=== PATIENT | male | born 1955 | race African-American/Black ===

== ENCOUNTER 2018-09-21 15:01 | Inpatient (IN) | payer MEDICAID ==
[~2018-09-21] VITALS: Ht 172.7 cm; Wt 60.8 kg
[2018-09-21] MEDS ORDERED: [UNRECOGNIZED DRUG - OTHER] PO (15:39)
[2018-09-21 18:34] LABS: BASOPHILS % (AUTO) 0.5 % (0.0-2.0); EOSINOPHILS % (AUTO) 2.1 % (1.0-6.0); HEMATOCRIT 39.3 % (41-53); HEMOGLOBIN 12.4 g/dL (13.5-17.5); LYMPHOCYTES # (AUTO) 0.6 K/uL (1.0-4.8); MEAN CORPUSCULAR HEMOGLOBIN 23.5 pg (26.0-34.0); MEAN CORPUSCULAR HGB CONC 31.5 G/dL (31.0-37.0); MEAN CORPUSCULAR VOLUME 75 fL (80-100); MONOCYTES # (AUTO) 0.5 K/uL (0.1-1.0); MONOCYTES % (AUTO) 6.4 % (2.0-9.0); NEUTROPHILS # (AUTO) 6.7 K/uL (1.8-7.7); PLATELET COUNT (AUTO) 194 K/uL (150-450); RED BLOOD CELL COUNT(AUTO) 5.28 MIL/uL (4.50-5.90); RED CELL DISTRIBUTION WIDTH 15.6 % (11.5-14.5)
[2018-09-21 18:39] LABS: ANION GAP 8 mmol/L (8-16); CALCIUM, TOTAL 9.3 mg/dL (8.8-10.5); CARBON DIOXIDE 31 mmol/L (22-29); CHLORIDE 105 mmol/L (98-107); GLOMERULAR FILTR. RATE CALC > 60 mL/min (>60); GLUCOSE,RANDOM 122 mg/dL (70-110); POTASSIUM 3.6 mmol/L (3.5-5.1); SODIUM SERUM 144 mmol/L (136-145); UREA NITROGEN, BLOOD 22 mg/dL (7-18)
[2018-09-21 18:44] LABS: ALANINE AMINOTRANSFERASE 27 U/L (12-78); ALBUMIN 3.7 g/dL (3.4-5.0); ALKALINE PHOSPHATASE 53 U/L (46-116); ASPARTATE AMINOTRANSFERASE 69 U/L (15-37); BILIRUBIN,TOTAL 0.4 mg/dL (0.1-1.0); TOTAL PROTEIN, SERUM 7.8 g/dL (6.4-8.2)
[2018-09-21] MEDS ORDERED: MORPHINE SULFATE 4 MG/ML SYRINGE IVP ONE (19:00)
[2018-09-21 19:14] LABS: PLATELET MORPHOLOGY COMMENT NORMAL
[2018-09-21] MEDS ORDERED: LORazepam 2 MG/ML VIAL IVP ONE (19:15)
[2018-09-21] MEDS ORDERED: ALBUTEROL SULFATE 2.5 MG/0.5 ML NEB SOLUTION NEB PRN (20:45)
[2018-09-21] MEDS ORDERED: BISACODYL 10 MG RECTAL RECTAL SUPPOSITORY PR PRN (20:45)
[2018-09-21] MEDS ORDERED: MAGNESIUM HYDROXIDE SUSPENSION 30 ML UDCUP PO PRN (20:45)
[2018-09-21] MEDS ORDERED: 0.9% SODIUM CHLORIDE 10 ML SYRINGE IVP PRN (20:45)
[2018-09-21] MEDS ORDERED: ONDANSETRON HCL 4 MG/2 ML VIAL IVP PRN (20:45)
[2018-09-21] MEDS ORDERED: ACETAMINOPHEN 325 MG TABLET PO PRN (20:45)
[2018-09-21 20:52] VITALS: BP 178/98
[2018-09-21 21:14] LABS: PROTHROMBIN TIME 10.4 SEC (9.4-11.6)
[2018-09-21] MEDS: DOCUSATE SODIUM 100 MG CAPSULE PO SCH (21:27)
[2018-09-21] MEDS: DEXTROSE 5%-0.45% SODIUM CHL 1,000 ML IV SCH (21:27)
[2018-09-21 23:12] VITALS: BP 160/94
[2018-09-21] MEDS ORDERED: PNEUMOCOCCAL VACCINE POLYVALENT 0.5 ML VIAL [PPSV23] IM ONE (23:15)
[2018-09-22] MEDS: MORPHINE SULFATE 4 MG/ML SYRINGE IVP PRN ×3 (00:10→22:11)
[2018-09-22 04:27] VITALS: BP 166/87
[2018-09-22 05:51] VITALS: BP 140/41
[2018-09-22 05:51] LABS: BASOPHILS % (AUTO) 0.4 % (0.0-2.0); EOSINOPHILS % (AUTO) 5.3 % (1.0-6.0); HEMATOCRIT 37.2 % (41-53); HEMOGLOBIN 11.8 g/dL (13.5-17.5); LYMPHOCYTES # (AUTO) 1.1 K/uL (1.0-4.8); LYMPHOCYTES % (AUTO) 17.1 % (22.0-44.0); MEAN CORPUSCULAR HEMOGLOBIN 23.6 pg (26.0-34.0); MEAN CORPUSCULAR HGB CONC 31.6 G/dL (31.0-37.0); MEAN CORPUSCULAR VOLUME 75 fL (80-100); MONOCYTES # (AUTO) 0.7 K/uL (0.1-1.0); MONOCYTES % (AUTO) 10.6 % (2.0-9.0); NEUTROPHILS # (AUTO) 4.3 K/uL (1.8-7.7); NEUTROPHILS % (AUTO) 66.6 % (40.0-70.0); PLATELET COUNT (AUTO) 170 K/uL (150-450); RED BLOOD CELL COUNT(AUTO) 4.98 MIL/uL (4.50-5.90); RED CELL DISTRIBUTION WIDTH 15.4 % (11.5-14.5)
[2018-09-22] MEDS ORDERED: LIDOCAINE/PF 2% 5 ML VIAL INJ ONE (06:00)
[2018-09-22] MEDS ORDERED: PROPOFOL 1% 20 ML VIAL IVP ONE (06:00)
[2018-09-22 06:10] LABS: ALANINE AMINOTRANSFERASE 20 U/L (12-78); ALBUMIN 3.2 g/dL (3.4-5.0); ALKALINE PHOSPHATASE 50 U/L (46-116); ANION GAP 12 mmol/L (8-16); ASPARTATE AMINOTRANSFERASE 45 U/L (15-37); BILIRUBIN,TOTAL 0.6 mg/dL (0.1-1.0); CALCIUM, TOTAL 8.8 mg/dL (8.8-10.5); CARBON DIOXIDE 27 mmol/L (22-29); CHLORIDE 105 mmol/L (98-107); CREATININE 0.84 mg/dL (0.60-1.30); GLOMERULAR FILTR. RATE CALC > 60 mL/min (>60); GLUCOSE,RANDOM 116 mg/dL (70-110); POTASSIUM 3.2 mmol/L (3.5-5.1); SODIUM SERUM 144 mmol/L (136-145); TOTAL PROTEIN, SERUM 6.9 g/dL (6.4-8.2); UREA NITROGEN, BLOOD 17 mg/dL (7-18)
[2018-09-22] MEDS ORDERED: POTASSIUM CHL 10 MEQ/WATER 50 ML IV PRN (06:45)
[2018-09-22] MEDS ORDERED: POTASSIUM CHLORIDE 20 MEQ ER TABLET PO PRN (06:45)
[2018-09-22] MEDS: DOCUSATE SODIUM 100 MG CAPSULE PO SCH ×2 (08:41→21:58)
[2018-09-22] MEDS: PANTOPRAZOLE SODIUM 40 MG/VIAL IVP SCH (08:57)
[2018-09-22 11:30] VITALS: BP 145/82
[2018-09-22] MEDS ORDERED: MIDAZOLAM HCL 2 MG/2 ML VIAL IVP ONE (12:00)
[2018-09-22] MEDS ORDERED: FentaNYL CITRATE-PF 100 MCG/2 ML VIAL IVP ONE (12:00)
[2018-09-22] MEDS ORDERED: KETAMINE HCL 50 MG/ML 10 ML VIAL IVP ONE (12:00)
[2018-09-22] MEDS ORDERED: ROCURONIUM BROMIDE 10 MG/ML 5 ML VIAL ONE (15:04)
[2018-09-22 15:15] VITALS: BP 173/81
[2018-09-22] MEDS ORDERED: BUPIVACAINE LIPOSOME/PF 1.3%-13.3MG/ML SUSPENSION 20 ML VIAL INJ ONE (15:30)
[2018-09-22] MEDS ORDERED: RINGERS SOLUTION,LACTATED 1,000 ML IV ONE ×2 (15:34→15:45)
[2018-09-22] MEDS ORDERED: VANCOMYCIN HCL 1 GM/VIAL ONE (16:40)
[2018-09-22] MEDS ORDERED: BUPIVACAINE HCL/PF 0.25% 30 ML VIAL ONE (16:40)
[2018-09-22] MEDS ORDERED: SODIUM CL IRRIG SOLN BAG 3,000 ML IRRIG ONE (16:40)
[2018-09-22] MEDS ORDERED: FentaNYL CITRATE-PF 100 MCG/2 ML VIAL IVP PRN (17:45)
[2018-09-22] MEDS ORDERED: MEPERIDINE-PF 25 MG/ML VIAL IVP PRN (17:45)
[2018-09-22] MEDS ORDERED: HYDROmorphone 2 MG/ML SYRINGE IVP PRN (17:45)
[2018-09-22] MEDS ORDERED: MICROFIBRILLAR COLLAGEN 1 GM PACKAGE TP ONE (17:54)
[2018-09-22] MEDS ORDERED: BACITRACIN 28.4 GM OINTMENT TP ONE (17:55)
[2018-09-22 19:46] VITALS: BP 141/99
[2018-09-22] MEDS: ATORVASTATIN CALCIUM 10 MG TABLET PO SCH (21:58)
[2018-09-22 23:51] VITALS: BP 134/72
[2018-09-23] MEDS: DEXTROSE 5%-0.45% SODIUM CHL 1,000 ML IV SCH ×3 (00:57→22:45)
[2018-09-23] MEDS: CeFAZolin 2 GM/DEXTROSE 50 ML IV SCH ×2 (01:00→08:31)
[2018-09-23] MEDS ORDERED: LORazepam 2 MG/ML VIAL IM ONE (02:45)
[2018-09-23] MEDS ORDERED: LORazepam 2 MG/ML VIAL IVP ONE (03:30)
[2018-09-23 03:40] VITALS: BP 162/91
[2018-09-23] MEDS: ACETAMINOPHEN 325 MG TABLET PO PRN (03:45)
[2018-09-23 05:28] VITALS: BP 141/77
[2018-09-23 07:31] LABS: BASOPHILS % (AUTO) 0.5 % (0.0-2.0); EOSINOPHILS % (AUTO) 2.9 % (1.0-6.0); HEMOGLOBIN 11.3 g/dL (13.5-17.5); LYMPHOCYTES # (AUTO) 0.7 K/uL (1.0-4.8); MEAN CORPUSCULAR HEMOGLOBIN 23.8 pg (26.0-34.0); MEAN CORPUSCULAR HGB CONC 32.2 G/dL (31.0-37.0); MEAN CORPUSCULAR VOLUME 74 fL (80-100); MONOCYTES # (AUTO) 0.6 K/uL (0.1-1.0); MONOCYTES % (AUTO) 10.9 % (2.0-9.0); NEUTROPHILS # (AUTO) 4.2 K/uL (1.8-7.7); NEUTROPHILS % (AUTO) 73.7 % (40.0-70.0); PLATELET COUNT (AUTO) 171 K/uL (150-450); RED BLOOD CELL COUNT(AUTO) 4.73 MIL/uL (4.50-5.90); RED CELL DISTRIBUTION WIDTH 15.4 % (11.5-14.5)
[2018-09-23 07:48] VITALS: BP 166/56
[2018-09-23] MEDS: OXYGEN THERAPY IH SCH (08:00)
[2018-09-23 08:12] LABS: ANION GAP 7 mmol/L (8-16); CALCIUM, TOTAL 8.7 mg/dL (8.8-10.5); CARBON DIOXIDE 31 mmol/L (22-29); CHLORIDE 104 mmol/L (98-107); CREATININE 0.91 mg/dL (0.60-1.30); GLOMERULAR FILTR. RATE CALC > 60 mL/min (>60); GLUCOSE,RANDOM 116 mg/dL (70-110); POTASSIUM 3.7 mmol/L (3.5-5.1); SODIUM SERUM 142 mmol/L (136-145); UREA NITROGEN, BLOOD 15 mg/dL (7-18)
[2018-09-23] MEDS: PANTOPRAZOLE SODIUM 40 MG/VIAL IVP SCH (08:30)
[2018-09-23] MEDS: DOCUSATE SODIUM 100 MG CAPSULE PO SCH ×2 (08:31→21:54)
[2018-09-23] MEDS: ENOXAPARIN SODIUM 30 MG/0.3 ML PF SYRINGE SQ SCH ×2 (08:31→21:54)
[2018-09-23 08:41] LABS: CREATINE KINASE, TOTAL ONLY 1616 U/L (39-308)
[2018-09-23] MEDS ORDERED: ASPIRIN 81 MG CHEWABLE TABLET PO SCH (09:00)
[2018-09-23 12:33] VITALS: BP 149/88
[2018-09-23 15:49] VITALS: BP 135/70
[2018-09-23 19:37] VITALS: BP 148/85
[2018-09-23] MEDS: ATORVASTATIN CALCIUM 10 MG TABLET PO SCH (21:54)
[2018-09-24] VITALS (7 sets, daily range): BP systolic 128–159; BP diastolic 60–94
[2018-09-24] MEDS: OXYGEN THERAPY IH SCH (08:00)
[2018-09-24] MEDS: PANTOPRAZOLE SODIUM 40 MG/VIAL IVP SCH (08:20)
[2018-09-24] MEDS: DOCUSATE SODIUM 100 MG CAPSULE PO SCH ×2 (08:20→20:17)
[2018-09-24] MEDS ORDERED: SODIUM CHLORIDE 0.9% 1,000 ML IV ONE (09:15)
[2018-09-24] MEDS: DEXTROSE 5%-0.45% SODIUM CHL 1,000 ML IV SCH ×2 (15:25→19:46)
[2018-09-24] MEDS: ATORVASTATIN CALCIUM 10 MG TABLET PO SCH (20:17)
[2018-09-25 04:39] VITALS: BP 154/89
[2018-09-25] MEDS: ACETAMINOPHEN 325 MG TABLET PO PRN ×2 (04:54→20:24)
[2018-09-25] MEDS ORDERED: RINGERS SOLUTION,LACTATED 1,000 ML IV ONE (05:30)
[2018-09-25 07:20] VITALS: BP 150/84
[2018-09-25] MEDS: OXYGEN THERAPY IH SCH (08:00)
[2018-09-25] MEDS: PANTOPRAZOLE SODIUM 40 MG/VIAL IVP SCH (09:04)
[2018-09-25] MEDS: DOCUSATE SODIUM 100 MG CAPSULE PO SCH ×2 (09:05→20:24)
[2018-09-25 09:40] LABS: BASOPHILS % (AUTO) 0.7 % (0.0-2.0); EOSINOPHILS % (AUTO) 4.2 % (1.0-6.0); HEMATOCRIT 26.6 % (41-53); HEMOGLOBIN 8.6 g/dL (13.5-17.5); LYMPHOCYTES # (AUTO) 0.9 K/uL (1.0-4.8); LYMPHOCYTES % (AUTO) 10.9 % (22.0-44.0); MEAN CORPUSCULAR HEMOGLOBIN 23.6 pg (26.0-34.0); MEAN CORPUSCULAR HGB CONC 32.3 G/dL (31.0-37.0); MEAN CORPUSCULAR VOLUME 73 fL (80-100); MONOCYTES # (AUTO) 0.8 K/uL (0.1-1.0); MONOCYTES % (AUTO) 10.5 % (2.0-9.0); NEUTROPHILS # (AUTO) 5.9 K/uL (1.8-7.7); NEUTROPHILS % (AUTO) 73.7 % (40.0-70.0); PLATELET COUNT (AUTO) 177 K/uL (150-450); RED BLOOD CELL COUNT(AUTO) 3.64 MIL/uL (4.50-5.90); RED CELL DISTRIBUTION WIDTH 14.4 % (11.5-14.5)
[2018-09-25 10:18] LABS: APPEARANCE,URINE CLEAR (CLEAR); BILIRUBIN,URINE NEGATIVE (NEGATIVE); GLUCOSE, URINE (UA) NEGATIVE (NEGATIVE); KETONES,URINE NEGATIVE (NEGATIVE); LEUKOCYTE ESTERASE ,URINE NEGATIVE (NEGATIVE); NITRATE,URINE NEGATIVE (NEGATIVE); OCCULT BLOOD,URINE SMALL (NEGATIVE); PROTEIN,URINE NEGATIVE (NEGATIVE)
[2018-09-25 10:25] LABS: BACTERIA,URINE None Seen /HPF (None Seen); RBC,URINE 0-2 /HPF (0-2); WBC,URINE None Seen /HPF (0-5)
[2018-09-25 11:32] VITALS: BP 149/77
[2018-09-25 15:32] VITALS: BP 149/68
[2018-09-25 19:24] VITALS: BP 131/63
[2018-09-25] MEDS: ATORVASTATIN CALCIUM 10 MG TABLET PO SCH (20:24)
[2018-09-25 23:21] VITALS: BP 139/65
[2018-09-26] MEDS: DEXTROSE 5%-0.45% SODIUM CHL 1,000 ML IV SCH ×2 (00:53→16:32)
[2018-09-26 04:41] VITALS: BP 137/72
[2018-09-26 06:11] LABS: HEMATOCRIT 26.1 % (41-53); HEMOGLOBIN 8.4 g/dL (13.5-17.5); LYMPHOCYTES # (AUTO) 1.6 K/uL (1.0-4.8); LYMPHOCYTES % (AUTO) 13.9 % (22.0-44.0); MEAN CORPUSCULAR HEMOGLOBIN 23.7 pg (26.0-34.0); MEAN CORPUSCULAR HGB CONC 32.1 G/dL (31.0-37.0); MEAN CORPUSCULAR VOLUME 74 fL (80-100); MONOCYTES # (AUTO) 1.1 K/uL (0.1-1.0); MONOCYTES % (AUTO) 9.4 % (2.0-9.0); NEUTROPHILS # (AUTO) 8.3 K/uL (1.8-7.7); NEUTROPHILS % (AUTO) 72.7 % (40.0-70.0); PLATELET COUNT (AUTO) 189 K/uL (150-450); RED BLOOD CELL COUNT(AUTO) 3.53 MIL/uL (4.50-5.90); RED CELL DISTRIBUTION WIDTH 14.3 % (11.5-14.5)
[2018-09-26 06:23] LABS: ALANINE AMINOTRANSFERASE 63 U/L (12-78); ALBUMIN 2.4 g/dL (3.4-5.0); ALKALINE PHOSPHATASE 79 U/L (46-116); ANION GAP 8 mmol/L (8-16); ASPARTATE AMINOTRANSFERASE 70 U/L (15-37); BILIRUBIN,TOTAL 0.4 mg/dL (0.1-1.0); CALCIUM, TOTAL 8.5 mg/dL (8.8-10.5); CARBON DIOXIDE 30 mmol/L (22-29); CHLORIDE 103 mmol/L (98-107); CREATININE 0.84 mg/dL (0.60-1.30); GLOMERULAR FILTR. RATE CALC > 60 mL/min (>60); GLUCOSE,RANDOM 129 mg/dL (70-110); POTASSIUM 3.8 mmol/L (3.5-5.1); SODIUM SERUM 141 mmol/L (136-145); TOTAL PROTEIN, SERUM 6.2 g/dL (6.4-8.2); UREA NITROGEN, BLOOD 17 mg/dL (7-18)
[2018-09-26 07:35] VITALS: BP 156/86
[2018-09-26] MEDS: DOCUSATE SODIUM 100 MG CAPSULE PO SCH ×2 (09:24→20:37)
[2018-09-26] MEDS: MULTIVITAMINS, THERAPEUTIC TABLET PO SCH (09:24)
[2018-09-26] MEDS: PANTOPRAZOLE SODIUM 40 MG/VIAL IVP SCH (09:24)
[2018-09-26 11:38] VITALS: BP 157/79
[2018-09-26] MEDS: ACETAMINOPHEN 325 MG TABLET PO PRN (16:31)
[2018-09-26 16:33] VITALS: BP 141/60
[2018-09-26 19:40] VITALS: BP 154/69
[2018-09-26] MEDS: OXYGEN THERAPY IH SCH (20:00)
[2018-09-26] MEDS: ATORVASTATIN CALCIUM 10 MG TABLET PO SCH (20:36)
[2018-09-26 23:23] VITALS: BP 174/82
[2018-09-27 04:42] VITALS: BP 156/81
[2018-09-27 06:05] LABS: BASOPHILS % (AUTO) 0.8 % (0.0-2.0); EOSINOPHILS % (AUTO) 3.6 % (1.0-6.0); HEMATOCRIT 29.1 % (41-53); HEMOGLOBIN 9.3 g/dL (13.5-17.5); LYMPHOCYTES # (AUTO) 1.1 K/uL (1.0-4.8); LYMPHOCYTES % (AUTO) 11.7 % (22.0-44.0); MEAN CORPUSCULAR HEMOGLOBIN 23.2 pg (26.0-34.0); MEAN CORPUSCULAR HGB CONC 31.8 G/dL (31.0-37.0); MEAN CORPUSCULAR VOLUME 73 fL (80-100); MONOCYTES % (AUTO) 11.1 % (2.0-9.0); NEUTROPHILS # (AUTO) 6.8 K/uL (1.8-7.7); NEUTROPHILS % (AUTO) 72.8 % (40.0-70.0); PLATELET COUNT (AUTO) 260 K/uL (150-450); RED CELL DISTRIBUTION WIDTH 14.5 % (11.5-14.5)
[2018-09-27] MEDS: OXYGEN THERAPY IH SCH ×2 (08:00→20:00)
[2018-09-27 08:13] VITALS: BP 156/71
[2018-09-27] MEDS: DOCUSATE SODIUM 100 MG CAPSULE PO SCH ×2 (08:16→22:02)
[2018-09-27] MEDS: MULTIVITAMINS, THERAPEUTIC TABLET PO SCH (08:16)
[2018-09-27] MEDS: PANTOPRAZOLE SODIUM 40 MG/VIAL IVP SCH (08:16)
[2018-09-27] MEDS: DEXTROSE 5%-0.45% SODIUM CHL 1,000 ML IV SCH (09:13)
[2018-09-27 11:15] VITALS: BP 131/82
[2018-09-27 15:22] VITALS: BP 157/77
[2018-09-27 19:43] VITALS: BP 136/61
[2018-09-27] MEDS: ATORVASTATIN CALCIUM 10 MG TABLET PO SCH (22:02)
[2018-09-27 23:53] VITALS: BP 137/74
[2018-09-28] VITALS (7 sets, daily range): BP systolic 121–178; BP diastolic 66–100
[2018-09-28] MEDS: DEXTROSE 5%-0.45% SODIUM CHL 1,000 ML IV SCH ×2 (02:45→19:25)
[2018-09-28] MEDS: DOCUSATE SODIUM 100 MG CAPSULE PO SCH ×2 (08:15→20:34)
[2018-09-28] MEDS: MULTIVITAMINS, THERAPEUTIC TABLET PO SCH (08:15)
[2018-09-28] MEDS: FAMOTIDINE 20 MG TABLET PO SCH ×2 (11:27→20:34)
[2018-09-28] MEDS: AmLODIPine BESYLATE 5 MG TABLET PO SCH (11:27)
[2018-09-28] MEDS: ATORVASTATIN CALCIUM 10 MG TABLET PO SCH (20:34)
[2018-09-29 05:20] VITALS: BP 156/86
[2018-09-29 07:40] VITALS: BP 133/97
[2018-09-29] MEDS: FAMOTIDINE 20 MG TABLET PO SCH ×2 (09:11→20:17)
[2018-09-29] MEDS: MULTIVITAMINS, THERAPEUTIC TABLET PO SCH (09:11)
[2018-09-29] MEDS: DOCUSATE SODIUM 100 MG CAPSULE PO SCH ×2 (09:11→20:17)
[2018-09-29] MEDS: AmLODIPine BESYLATE 5 MG TABLET PO SCH (09:11)
[2018-09-29 11:25] VITALS: BP 105/45
[2018-09-29] MEDS: DEXTROSE 5%-0.45% SODIUM CHL 1,000 ML IV SCH ×2 (12:05→12:16)
[2018-09-29 15:42] VITALS: BP 121/69
[2018-09-29 19:53] VITALS: BP 122/64
[2018-09-29] MEDS: ATORVASTATIN CALCIUM 10 MG TABLET PO SCH (20:17)
[2018-09-29 23:31] VITALS: BP 126/63
[2018-09-30 04:00] VITALS: BP 144/74
[2018-09-30 07:20] VITALS: BP 140/66
[2018-09-30] MEDS: DOCUSATE SODIUM 100 MG CAPSULE PO SCH ×2 (08:46→15:19)
[2018-09-30] MEDS: FAMOTIDINE 20 MG TABLET PO SCH ×3 (08:46→21:24)
[2018-09-30] MEDS: MULTIVITAMINS, THERAPEUTIC TABLET PO SCH ×2 (08:46→09:00)
[2018-09-30] MEDS: AmLODIPine BESYLATE 5 MG TABLET PO SCH ×2 (08:46→15:21)
[2018-09-30 11:16] VITALS: BP 129/80
[2018-09-30 20:42] VITALS: BP 137/66
[2018-09-30] MEDS: ATORVASTATIN CALCIUM 10 MG TABLET PO SCH (21:24)
[2018-09-30] MEDS: CeFAZolin 1 GM/DEXTROSE 50 ML IV SCH (23:23)
[2018-10-01 01:14] VITALS: BP 146/77
[2018-10-01 05:32] VITALS: BP 158/91
[2018-10-01] MEDS: CeFAZolin 1 GM/DEXTROSE 50 ML IV SCH (05:50)
[2018-10-01 08:08] VITALS: BP 142/92
[2018-10-01] MEDS: MULTIVITAMINS, THERAPEUTIC TABLET PO SCH (08:32)
[2018-10-01] MEDS: DOCUSATE SODIUM 100 MG CAPSULE PO SCH ×2 (08:32→20:34)
[2018-10-01] MEDS: FAMOTIDINE 20 MG TABLET PO SCH ×2 (08:32→20:34)
[2018-10-01] MEDS ORDERED: LIDOCAINE 1%/EPI 1:200,000/PF 30 ML VIAL ONE (09:35)
[2018-10-01] MEDS ORDERED: VANCOMYCIN HCL 1 GM/VIAL ONE ×2 (09:35→11:44)
[2018-10-01] MEDS ORDERED: SODIUM CHLORIDE 0.9% 10 ML ONE (09:36)
[2018-10-01] MEDS ORDERED: SODIUM CHLORIDE 0.9% 250 ML IV ONE (09:36)
[2018-10-01] MEDS ORDERED: BACITRACIN 50,000 UNITS/VIAL ONE (09:36)
[2018-10-01] MEDS ORDERED: RINGERS SOLUTION,LACTATED 1,000 ML IV SCH (10:30)
[2018-10-01 10:34] LABS: BASOPHILS % (AUTO) 1.9 % (0.0-2.0); EOSINOPHILS % (AUTO) 2.5 % (1.0-6.0); HEMATOCRIT 28.3 % (41-53); HEMOGLOBIN 8.9 g/dL (13.5-17.5); LYMPHOCYTES # (AUTO) 1.5 K/uL (1.0-4.8); LYMPHOCYTES % (AUTO) 13.7 % (22.0-44.0); MEAN CORPUSCULAR HEMOGLOBIN 23.1 pg (26.0-34.0); MEAN CORPUSCULAR HGB CONC 31.5 G/dL (31.0-37.0); MEAN CORPUSCULAR VOLUME 74 fL (80-100); MONOCYTES # (AUTO) 1.1 K/uL (0.1-1.0); MONOCYTES % (AUTO) 9.7 % (2.0-9.0); NEUTROPHILS # (AUTO) 7.8 K/uL (1.8-7.7); NEUTROPHILS % (AUTO) 72.2 % (40.0-70.0); PLATELET COUNT (AUTO) 341 K/uL (150-450); RED BLOOD CELL COUNT(AUTO) 3.85 MIL/uL (4.50-5.90); RED CELL DISTRIBUTION WIDTH 14.6 % (11.5-14.5)
[2018-10-01 10:46] LABS: PROTHROMBIN TIME 10.9 SEC (9.4-11.6)
[2018-10-01] MEDS ORDERED: RINGERS SOLUTION,LACTATED 0 ML IV ONE (10:47)
[2018-10-01 11:27] LABS: ANION GAP 4 mmol/L (8-16); CALCIUM, TOTAL 8.9 mg/dL (8.8-10.5); CARBON DIOXIDE 30 mmol/L (22-29); CHLORIDE 103 mmol/L (98-107); CREATININE 0.79 mg/dL (0.60-1.30); GLOMERULAR FILTR. RATE CALC > 60 mL/min (>60); GLUCOSE,RANDOM 107 mg/dL (70-110); POTASSIUM 4.4 mmol/L (3.5-5.1); SODIUM SERUM 137 mmol/L (136-145); UREA NITROGEN, BLOOD 22 mg/dL (7-18)
[2018-10-01] MEDS ORDERED: SODIUM CHLORIDE 0.9% 100 ML ONE (11:44)
[2018-10-01] MEDS ORDERED: OxyCODONE HCL/ACETAMINOPHEN 5-325 MG TABLET PO PRN (11:45)
[2018-10-01] MEDS ORDERED: HYDROmorphone 2 MG/ML SYRINGE IVP PRN ×2 (11:45→13:00)
[2018-10-01] MEDS ORDERED: ROCURONIUM BROMIDE 10 MG/ML 5 ML VIAL IVP ONE (12:00)
[2018-10-01] MEDS ORDERED: LIDOCAINE/PF 2% 5 ML SYRINGE IVP ONE (12:00)
[2018-10-01] MEDS ORDERED: SUCCINYLCHOLINE CHLORIDE 20 MG/ML 10 ML VIAL IVP ONE (12:00)
[2018-10-01] MEDS ORDERED: FentaNYL CITRATE-PF 100 MCG/2 ML VIAL IVP ONE (12:00)
[2018-10-01] MEDS ORDERED: PROPOFOL 1% 20 ML VIAL IVP ONE (12:00)
[2018-10-01] MEDS ORDERED: PHENYLEPHRINE HCL 10 MG/ML VIAL IVP ONE (12:00)
[2018-10-01] MEDS ORDERED: EPHEDrine SULFATE 50 MG/ML VIAL IM ONE (12:00)
[2018-10-01] MEDS ORDERED: RINGERS SOLUTION,LACTATED 2,000 ML IV ONE (12:14)
[2018-10-01] MEDS ORDERED: SUGAMMADEX SODIUM 200 MG/2 ML VIAL IVP ONE (12:50)
[2018-10-01] MEDS ORDERED: FentaNYL CITRATE-PF 100 MCG/2 ML VIAL IVP PRN (13:00)
[2018-10-01] MEDS ORDERED: MEPERIDINE-PF 25 MG/ML VIAL IVP PRN (13:00)
[2018-10-01] MEDS ORDERED: BACITRACIN 28.4 GM OINTMENT TP ONE (13:06)
[2018-10-01 15:29] VITALS: BP 149/68
[2018-10-01] MEDS ORDERED: VANCOMYCIN HCL 1.25 GM in DEXTROSE 5%-WATER 250 ML IV ONE (16:00)
[2018-10-01] MEDS ORDERED: VANCOMYCIN HCL 1 GM/D5% WATER 200 ML IV SCH (16:00)
[2018-10-01 16:41] LABS: GLUCOSE, CSF 82 mg/dL (50-80)
[2018-10-01 18:06] LABS: APPEARANCE,CSF CLEAR (CLEAR); COLOR,CSF COLORLESS (COLORLESS); CSF TOTAL VOLUME 6.5 mL; CSF TUBE NUMBER 1; LYMPHOCYTES1,CSF 0 %; MONOCYTES1,CSF 0 %; NEUTROPHILS1,CSF 0 %
[2018-10-01 18:07] LABS: OTHER CELLS,CSF 0
[2018-10-01] MEDS: OXYGEN THERAPY IH SCH (20:00)
[2018-10-01] MEDS: ATORVASTATIN CALCIUM 10 MG TABLET PO SCH (20:34)
[2018-10-01 21:05] VITALS: BP 150/88
[2018-10-02 00:06] VITALS: BP 148/75
[2018-10-02 05:26] VITALS: BP 160/76
[2018-10-02 06:03] LABS: BASOPHILS % (AUTO) 0.8 % (0.0-2.0); EOSINOPHILS % (AUTO) 0.4 % (1.0-6.0); HEMATOCRIT 26.7 % (41-53); HEMOGLOBIN 8.5 g/dL (13.5-17.5); LYMPHOCYTES # (AUTO) 1.3 K/uL (1.0-4.8); MEAN CORPUSCULAR HEMOGLOBIN 23.1 pg (26.0-34.0); MEAN CORPUSCULAR HGB CONC 31.7 G/dL (31.0-37.0); MEAN CORPUSCULAR VOLUME 73 fL (80-100); MONOCYTES # (AUTO) 1.2 K/uL (0.1-1.0); MONOCYTES % (AUTO) 9.9 % (2.0-9.0); NEUTROPHILS # (AUTO) 9.5 K/uL (1.8-7.7); NEUTROPHILS % (AUTO) 77.9 % (40.0-70.0); PLATELET COUNT (AUTO) 355 K/uL (150-450); RED BLOOD CELL COUNT(AUTO) 3.67 MIL/uL (4.50-5.90); RED CELL DISTRIBUTION WIDTH 14.4 % (11.5-14.5)
[2018-10-02 06:24] LABS: ANION GAP 7 mmol/L (8-16); CALCIUM, TOTAL 8.4 mg/dL (8.8-10.5); CARBON DIOXIDE 28 mmol/L (22-29); CHLORIDE 100 mmol/L (98-107); CREATININE 0.75 mg/dL (0.60-1.30); GLOMERULAR FILTR. RATE CALC > 60 mL/min (>60); GLUCOSE,RANDOM 115 mg/dL (70-110); SODIUM SERUM 135 mmol/L (136-145); UREA NITROGEN, BLOOD 15 mg/dL (7-18)
[2018-10-02] MEDS: VANCOMYCIN HCL 1 GM/D5% WATER 200 ML IV SCH ×2 (06:27→18:00)
[2018-10-02 08:09] VITALS: BP 117/98
[2018-10-02] MEDS: AmLODIPine BESYLATE 5 MG TABLET PO SCH (09:22)
[2018-10-02] MEDS: FAMOTIDINE 20 MG TABLET PO SCH ×2 (09:22→21:22)
[2018-10-02] MEDS: DOCUSATE SODIUM 100 MG CAPSULE PO SCH ×2 (09:22→21:22)
[2018-10-02] MEDS: MULTIVITAMINS, THERAPEUTIC TABLET PO SCH (09:23)
[2018-10-02 13:10] VITALS: BP 130/93
[2018-10-02 16:05] VITALS: BP 147/69
[2018-10-02 20:02] VITALS: BP 123/67
[2018-10-02] MEDS: ATORVASTATIN CALCIUM 10 MG TABLET PO SCH (21:22)
[2018-10-02] MEDS: DEXTROSE 5%-0.45% SODIUM CHL 1,000 ML IV SCH (21:23)
[2018-10-03 00:25] VITALS: BP 126/61
[2018-10-03 04:38] VITALS: BP 118/82
[2018-10-03] MEDS: VANCOMYCIN HCL 1 GM/D5% WATER 200 ML IV SCH ×2 (05:34→18:06)
[2018-10-03 06:38] LABS: BASOPHILS % (AUTO) 0.8 % (0.0-2.0); HEMATOCRIT 25.4 % (41-53); HEMOGLOBIN 8.2 g/dL (13.5-17.5); LYMPHOCYTES # (AUTO) 1.3 K/uL (1.0-4.8); LYMPHOCYTES % (AUTO) 12.3 % (22.0-44.0); MEAN CORPUSCULAR HEMOGLOBIN 23.4 pg (26.0-34.0); MEAN CORPUSCULAR HGB CONC 32.2 G/dL (31.0-37.0); MEAN CORPUSCULAR VOLUME 73 fL (80-100); MONOCYTES % (AUTO) 9.4 % (2.0-9.0); NEUTROPHILS # (AUTO) 8.1 K/uL (1.8-7.7); NEUTROPHILS % (AUTO) 75.5 % (40.0-70.0); PLATELET COUNT (AUTO) 322 K/uL (150-450); RED CELL DISTRIBUTION WIDTH 14.4 % (11.5-14.5)
[2018-10-03 07:05] LABS: ANION GAP 6 mmol/L (8-16); CARBON DIOXIDE 27 mmol/L (22-29); CHLORIDE 101 mmol/L (98-107); CREATININE 0.72 mg/dL (0.60-1.30); GLOMERULAR FILTR. RATE CALC > 60 mL/min (>60); GLUCOSE,RANDOM 111 mg/dL (70-110); POTASSIUM 3.9 mmol/L (3.5-5.1); SODIUM SERUM 134 mmol/L (136-145); UREA NITROGEN, BLOOD 16 mg/dL (7-18); VANCOMYCIN,RANDOM 16.4 mcg/mL (25.0-50.0)
[2018-10-03 08:09] VITALS: BP 146/73
[2018-10-03] MEDS: FAMOTIDINE 20 MG TABLET PO SCH ×2 (08:15→20:10)
[2018-10-03] MEDS: MULTIVITAMINS, THERAPEUTIC TABLET PO SCH (08:15)
[2018-10-03] MEDS: DOCUSATE SODIUM 100 MG CAPSULE PO SCH ×2 (08:15→20:09)
[2018-10-03] MEDS: AmLODIPine BESYLATE 5 MG TABLET PO SCH (08:15)
[2018-10-03 11:38] VITALS: BP 146/74
[2018-10-03 20:03] VITALS: BP 140/72
[2018-10-03] MEDS: ATORVASTATIN CALCIUM 10 MG TABLET PO SCH (20:10)
[2018-10-03] MEDS: DEXTROSE 5%-0.45% SODIUM CHL 1,000 ML IV SCH (22:33)
[2018-10-03 23:59] VITALS: BP 139/62
[2018-10-04 04:29] VITALS: BP 125/70
[2018-10-04 07:21] LABS: B-TYPE NATRIURETIC PEPTIDE 15 pg/mL (0-100)
[2018-10-04 07:23] LABS: ANION GAP 7 mmol/L (8-16); CALCIUM, TOTAL 9.1 mg/dL (8.8-10.5); CARBON DIOXIDE 30 mmol/L (22-29); CHLORIDE 99 mmol/L (98-107); CREATINE KINASE, TOTAL ONLY 200 U/L (39-308); CREATININE 0.74 mg/dL (0.60-1.30); GLOMERULAR FILTR. RATE CALC > 60 mL/min (>60); GLUCOSE,RANDOM 108 mg/dL (70-110); POTASSIUM 3.8 mmol/L (3.5-5.1); SODIUM SERUM 136 mmol/L (136-145); UREA NITROGEN, BLOOD 13 mg/dL (7-18)
[2018-10-04] MEDS: OXYGEN THERAPY IH SCH (08:00)
[2018-10-04] MEDS: AmLODIPine BESYLATE 5 MG TABLET PO SCH (08:24)
[2018-10-04] MEDS: DOCUSATE SODIUM 100 MG CAPSULE PO SCH ×2 (08:24→20:00)
[2018-10-04] MEDS: FAMOTIDINE 20 MG TABLET PO SCH ×2 (08:24→20:00)
[2018-10-04] MEDS: MULTIVITAMINS, THERAPEUTIC TABLET PO SCH (08:24)
[2018-10-04] MEDS: VANCOMYCIN HCL 1 GM/D5% WATER 200 ML IV SCH ×2 (08:25→17:59)
[2018-10-04 11:20] VITALS: BP 157/61
[2018-10-04 15:37] VITALS: BP 142/67
[2018-10-04] MEDS: DEXTROSE 5%-0.45% SODIUM CHL 1,000 ML IV SCH (18:00)
[2018-10-04 19:33] VITALS: BP 143/73
[2018-10-04] MEDS: ATORVASTATIN CALCIUM 10 MG TABLET PO SCH (20:00)
[2018-10-05 00:02] VITALS: BP 126/63
[2018-10-05 04:24] VITALS: BP 152/75
[2018-10-05] MEDS: VANCOMYCIN HCL 1 GM/D5% WATER 200 ML IV SCH ×2 (06:14→18:04)
[2018-10-05] MEDS: OXYGEN THERAPY IH SCH (08:00)
[2018-10-05 08:45] LABS: ANION GAP 3 mmol/L (8-16); CALCIUM, TOTAL 8.9 mg/dL (8.8-10.5); CARBON DIOXIDE 32 mmol/L (22-29); CHLORIDE 100 mmol/L (98-107); CREATININE 0.74 mg/dL (0.60-1.30); GLOMERULAR FILTR. RATE CALC > 60 mL/min (>60); GLUCOSE,RANDOM 115 mg/dL (70-110); SODIUM SERUM 135 mmol/L (136-145); UREA NITROGEN, BLOOD 11 mg/dL (7-18)
[2018-10-05 09:00] VITALS: BP 160/94
[2018-10-05] MEDS: DOCUSATE SODIUM 100 MG CAPSULE PO SCH ×2 (09:14→19:46)
[2018-10-05] MEDS: FAMOTIDINE 20 MG TABLET PO SCH ×2 (09:14→19:46)
[2018-10-05] MEDS: AmLODIPine BESYLATE 5 MG TABLET PO SCH (09:14)
[2018-10-05] MEDS: MULTIVITAMINS, THERAPEUTIC TABLET PO SCH (09:14)
[2018-10-05 11:22] VITALS: BP 152/78
[2018-10-05] MEDS: DEXTROSE 5%-0.45% SODIUM CHL 1,000 ML IV SCH (18:04)
[2018-10-05] MEDS: ATORVASTATIN CALCIUM 10 MG TABLET PO SCH (19:46)
[2018-10-05 20:12] VITALS: BP 145/71
[2018-10-05 23:43] VITALS: BP 130/82
[2018-10-06 04:00] VITALS: BP 145/73
[2018-10-06] MEDS: VANCOMYCIN HCL 1 GM/D5% WATER 200 ML IV SCH (06:02)
[2018-10-06 07:00] LABS: BASOPHILS % (AUTO) 0.4 % (0.0-2.0); EOSINOPHILS % (AUTO) 6.6 % (1.0-6.0); HEMATOCRIT 27.4 % (41-53); HEMOGLOBIN 8.7 g/dL (13.5-17.5); LYMPHOCYTES # (AUTO) 1.2 K/uL (1.0-4.8); LYMPHOCYTES % (AUTO) 11.3 % (22.0-44.0); MEAN CORPUSCULAR HEMOGLOBIN 23.1 pg (26.0-34.0); MEAN CORPUSCULAR HGB CONC 31.6 G/dL (31.0-37.0); MEAN CORPUSCULAR VOLUME 73 fL (80-100); MONOCYTES # (AUTO) 0.9 K/uL (0.1-1.0); MONOCYTES % (AUTO) 8.4 % (2.0-9.0); NEUTROPHILS # (AUTO) 7.8 K/uL (1.8-7.7); NEUTROPHILS % (AUTO) 73.3 % (40.0-70.0); PLATELET COUNT (AUTO) 381 K/uL (150-450); RED BLOOD CELL COUNT(AUTO) 3.75 MIL/uL (4.50-5.90); RED CELL DISTRIBUTION WIDTH 14.5 % (11.5-14.5)
[2018-10-06 07:56] LABS: ANION GAP 4 mmol/L (8-16); CALCIUM, TOTAL 8.7 mg/dL (8.8-10.5); CARBON DIOXIDE 29 mmol/L (22-29); CHLORIDE 102 mmol/L (98-107); CREATININE 0.73 mg/dL (0.60-1.30); GLOMERULAR FILTR. RATE CALC > 60 mL/min (>60); GLUCOSE,RANDOM 110 mg/dL (70-110); POTASSIUM 4.7 mmol/L (3.5-5.1); SODIUM SERUM 135 mmol/L (136-145); UREA NITROGEN, BLOOD 17 mg/dL (7-18); VANCOMYCIN,RANDOM 15.5 mcg/mL (25.0-50.0)
[2018-10-06] MEDS: OXYGEN THERAPY IH SCH (08:00)
[2018-10-06 08:10] VITALS: BP 135/80
[2018-10-06] MEDS: DOCUSATE SODIUM 100 MG CAPSULE PO SCH ×2 (09:34→19:55)
[2018-10-06] MEDS: AmLODIPine BESYLATE 5 MG TABLET PO SCH (09:34)
[2018-10-06] MEDS: MULTIVITAMINS, THERAPEUTIC TABLET PO SCH (09:34)
[2018-10-06] MEDS: FAMOTIDINE 20 MG TABLET PO SCH ×2 (09:34→19:55)
[2018-10-06 12:12] VITALS: BP 143/59
[2018-10-06 16:28] VITALS: BP 159/89
[2018-10-06] MEDS: ATORVASTATIN CALCIUM 10 MG TABLET PO SCH (19:55)
[2018-10-06 20:09] VITALS: BP 136/68
[2018-10-07 00:03] VITALS: BP 133/63
[2018-10-07 04:12] VITALS: BP 130/61
[2018-10-07] MEDS: FAMOTIDINE 20 MG TABLET PO SCH ×2 (08:07→19:56)
[2018-10-07] MEDS: MULTIVITAMINS, THERAPEUTIC TABLET PO SCH (08:07)
[2018-10-07] MEDS: AmLODIPine BESYLATE 5 MG TABLET PO SCH (08:08)
[2018-10-07] MEDS: DOCUSATE SODIUM 100 MG CAPSULE PO SCH ×2 (08:08→19:56)
[2018-10-07 08:11] VITALS: BP 153/74
[2018-10-07 12:20] VITALS: BP 135/75
[2018-10-07 16:15] VITALS: BP 136/66
[2018-10-07] MEDS: ATORVASTATIN CALCIUM 10 MG TABLET PO SCH (19:56)
[2018-10-07] MEDS: OXYGEN THERAPY IH SCH (19:57)
[2018-10-07 23:43] VITALS: BP 139/72
[2018-10-08 05:38] VITALS: BP 161/75
[2018-10-08 07:20] VITALS: BP 155/84
[2018-10-08] MEDS: AmLODIPine BESYLATE 5 MG TABLET PO SCH (10:30)
[2018-10-08] MEDS: DOCUSATE SODIUM 100 MG CAPSULE PO SCH ×2 (10:30→21:00)
[2018-10-08] MEDS: FAMOTIDINE 20 MG TABLET PO SCH ×2 (10:30→21:00)
[2018-10-08] MEDS: MULTIVITAMINS, THERAPEUTIC TABLET PO SCH (10:31)
[2018-10-08 11:34] VITALS: BP 138/90
[2018-10-08 16:05] VITALS: BP 143/73
[2018-10-08 20:10] VITALS: BP 111/66
[2018-10-08] MEDS: ATORVASTATIN CALCIUM 10 MG TABLET PO SCH (21:00)
[2018-10-08 23:44] VITALS: BP 126/85
[2018-10-09 04:00] VITALS: BP 150/75
[2018-10-09 06:23] LABS: BASOPHILS % (AUTO) 0.6 % (0.0-2.0); EOSINOPHILS % (AUTO) 3.2 % (1.0-6.0); HEMATOCRIT 28.8 % (41-53); HEMOGLOBIN 9.2 g/dL (13.5-17.5); LYMPHOCYTES # (AUTO) 0.9 K/uL (1.0-4.8); LYMPHOCYTES % (AUTO) 8.9 % (22.0-44.0); MEAN CORPUSCULAR HEMOGLOBIN 23.2 pg (26.0-34.0); MEAN CORPUSCULAR VOLUME 73 fL (80-100); MONOCYTES # (AUTO) 0.7 K/uL (0.1-1.0); MONOCYTES % (AUTO) 7.2 % (2.0-9.0); NEUTROPHILS # (AUTO) 8.2 K/uL (1.8-7.7); NEUTROPHILS % (AUTO) 80.1 % (40.0-70.0); PLATELET COUNT (AUTO) 394 K/uL (150-450); RED BLOOD CELL COUNT(AUTO) 3.97 MIL/uL (4.50-5.90); RED CELL DISTRIBUTION WIDTH 14.5 % (11.5-14.5)
[2018-10-09 06:59] LABS: ANION GAP 6 mmol/L (8-16); CALCIUM, TOTAL 8.9 mg/dL (8.8-10.5); CARBON DIOXIDE 29 mmol/L (22-29); CHLORIDE 101 mmol/L (98-107); CREATININE 0.85 mg/dL (0.60-1.30); GLOMERULAR FILTR. RATE CALC > 60 mL/min (>60); GLUCOSE,RANDOM 99 mg/dL (70-110); POTASSIUM 4.6 mmol/L (3.5-5.1); SODIUM SERUM 136 mmol/L (136-145); UREA NITROGEN, BLOOD 20 mg/dL (7-18)
[2018-10-09 07:15] VITALS: BP 157/80
[2018-10-09] MEDS: OXYGEN THERAPY IH SCH (08:00)
[2018-10-09] MEDS: FAMOTIDINE 20 MG TABLET PO SCH (09:06)
[2018-10-09] MEDS: AmLODIPine BESYLATE 5 MG TABLET PO SCH (09:06)
[2018-10-09] MEDS: MULTIVITAMINS, THERAPEUTIC TABLET PO SCH (09:06)
[2018-10-09 12:07] VITALS: BP 148/78
[2018-10-09] MEDS: DOCUSATE SODIUM 100 MG CAPSULE PO SCH (14:48)
[2018-10-09 15:39] VITALS: BP 150/74
== END 2018-10-09 18:34 | DRG 301 ==
LOC: EMS 15:02 → 6N 19:00 → 4E 09-22 10:43 → 6N 09-30 15:33
PROVIDERS: ADMIT Internal Medicine; ATTEND Internal Medicine
PROC: 0SR90JZ Replacement of Right Hip Joint with Synthetic Substitute, Open Approach (ICD-10-PCS; principal; 2018-09-23)
PROC: 00160J6 Bypass Cerebral Ventricle to Peritoneal Cavity with Synthetic Substitute, Open Approach (ICD-10-PCS; 2018-10-01)
DX: M84.451A Pathological fracture, right femur, initial encounter for fracture (principal); E43 Unspecified severe protein-calorie malnutrition; G91.9 Hydrocephalus, unspecified; M62.82 Rhabdomyolysis; G91.2 (Idiopathic) normal pressure hydrocephalus; M25.00 Hemarthrosis, unspecified joint; F03.90 Unspecified dementia, unspecified severity, without behavioral disturbance, psychotic disturbance, mood disturbance, and anxiety; D50.9 Iron deficiency anemia, unspecified; W18.30XA Fall on same level, unspecified, initial encounter; E87.6 Hypokalemia; Z68.20 Body mass index [BMI] 20.0-20.9, adult; M81.0 Age-related osteoporosis without current pathological fracture; D72.829 Elevated white blood cell count, unspecified; Z96.649 Presence of unspecified artificial hip joint; R62.7 Adult failure to thrive; I73.9 Peripheral vascular disease, unspecified; Y92.009 Unspecified place in unspecified non-institutional (private) residence as the place of occurrence of the external cause; Z82.49 Family history of ischemic heart disease and other diseases of the circulatory system; Z79.899 Other long term (current) drug therapy; Z28.21 Immunization not carried out because of patient refusal
CPT/HCPCS: 70450; 70551; 72131; 72170; 82945; 83036; 83735; 84132; 84157; 87040; 87070; 87081; 87205; 88300; 89051; 93005; 93306; 97110; 97116; 97163; 97167; 97530; 97535; C9113; C9290; G0378; J0330; J0690; J1650; J2060; J2250; J2270; J2370; J2704; J3010; J3370; J3490; J7030; J7050; J7060; J7120

== ENCOUNTER → 2018-10-31 | Outpatient (CLI) | payer MEDICAID ==
[~2018-10-31] MED LIST: [UNRECOGNIZED DRUG - OTHER] PO
== END | disposition home or self-care (01) ==
LOC: RADMN 13:20
PROVIDERS: ATTEND Physician Assistant
DX: J32.4 Chronic pansinusitis (principal); I99.8 Other disorder of circulatory system; I70.8 Atherosclerosis of other arteries; R41.82 Altered mental status, unspecified
CPT/HCPCS: 70450

== ENCOUNTER → 2018-11-20 | Outpatient (CLI) | payer MEDICAID | END | disposition home or self-care (01) | LOC: RADPV 13:30 | PROVIDERS: ATTEND Orthopaedic Surgery | DX: Z47.1 Aftercare following joint replacement surgery (principal); Z96.641 Presence of right artificial hip joint | CPT/HCPCS: 73502 ==

== ENCOUNTER 2018-12-16 11:57 | Inpatient (IN) | payer MEDICAID ==
[~2018-12-16] VITALS: Ht 172.7 cm; Wt 62.9 kg
[2018-12-16] MEDS ORDERED: AMLO-511 PO (12:51)
[2018-12-16] MEDS ORDERED: CHOL50004 PO (12:51)
[2018-12-16] MEDS ORDERED: FERR-89 PO (12:51)
[2018-12-16 14:20] LABS: BASOPHILS % (AUTO) 0.6 % (0.0-2.0); EOSINOPHILS % (AUTO) 3.3 % (1.0-6.0); HEMATOCRIT 39.5 % (41-53); HEMOGLOBIN 12.3 g/dL (13.5-17.5); LYMPHOCYTES # (AUTO) 0.8 K/uL (1.0-4.8); MEAN CORPUSCULAR HEMOGLOBIN 22.7 pg (26.0-34.0); MEAN CORPUSCULAR HGB CONC 31.2 G/dL (31.0-37.0); MEAN CORPUSCULAR VOLUME 73 fL (80-100); MONOCYTES # (AUTO) 0.4 K/uL (0.1-1.0); MONOCYTES % (AUTO) 6.2 % (2.0-9.0); NEUTROPHILS # (AUTO) 4.6 K/uL (1.8-7.7); NEUTROPHILS % (AUTO) 75.9 % (40.0-70.0); PLATELET COUNT (AUTO) 255 K/uL (150-450); RED BLOOD CELL COUNT(AUTO) 5.44 MIL/uL (4.50-5.90); RED CELL DISTRIBUTION WIDTH 16.9 % (11.5-14.5)
[2018-12-16 14:32] LABS: PROTHROMBIN TIME 10.7 SEC (9.4-11.6)
[2018-12-16 14:37] LABS: ANION GAP 11 mmol/L (8-16); CALCIUM, TOTAL 9.6 mg/dL (8.8-10.5); CARBON DIOXIDE 29 mmol/L (22-29); CHLORIDE 101 mmol/L (98-107); CREATININE 0.95 mg/dL (0.60-1.30); GLOMERULAR FILTR. RATE CALC > 60 mL/min (>60); GLUCOSE,RANDOM 100 mg/dL (70-110); POTASSIUM 3.9 mmol/L (3.5-5.1); SODIUM SERUM 141 mmol/L (136-145); UREA NITROGEN, BLOOD 21 mg/dL (7-18)
[2018-12-16 14:43] LABS: B-TYPE NATRIURETIC PEPTIDE < 5 pg/mL (0-100)
[2018-12-16 15:00] LABS: ALANINE AMINOTRANSFERASE 36 U/L (12-78); ALBUMIN 4.3 g/dL (3.4-5.0); ALKALINE PHOSPHATASE 73 U/L (46-116); ASPARTATE AMINOTRANSFERASE 26 U/L (15-37); BILIRUBIN,TOTAL 0.3 mg/dL (0.1-1.0); CREATINE KINASE, TOTAL ONLY 138 U/L (39-308); TOTAL PROTEIN, SERUM 8.5 g/dL (6.4-8.2)
[2018-12-16] MEDS ORDERED: MAGNESIUM HYDROXIDE SUSPENSION 30 ML UDCUP PO PRN (15:00)
[2018-12-16] MEDS ORDERED: ONDANSETRON HCL 4 MG/2 ML VIAL IVP PRN (15:00)
[2018-12-16] MEDS ORDERED: ACETAMINOPHEN 325 MG TABLET PO PRN (15:00)
[2018-12-16] MEDS ORDERED: ALBUTEROL SULFATE 2.5 MG/0.5 ML NEB SOLUTION NEB PRN (15:00)
[2018-12-16] MEDS ORDERED: DEXTROSE 5%-0.45% SODIUM CHL 1,000 ML IV ONE (15:00)
[2018-12-16 15:09] LABS: APPEARANCE,URINE CLOUDY (CLEAR); BILIRUBIN,URINE NEGATIVE (NEGATIVE); GLUCOSE, URINE (UA) NEGATIVE (NEGATIVE); KETONES,URINE NEGATIVE (NEGATIVE); LEUKOCYTE ESTERASE ,URINE MODERATE (NEGATIVE); NITRATE,URINE NEGATIVE (NEGATIVE); OCCULT BLOOD,URINE MODERATE (NEGATIVE); PROTEIN,URINE TRACE (NEGATIVE)
[2018-12-16] MEDS: PANTOPRAZOLE SODIUM 40 MG/VIAL IVP SCH (15:09)
[2018-12-16] MEDS ORDERED: SODIUM CHLORIDE 0.9% 1,000 ML IV ONE (15:15)
[2018-12-16] MEDS ORDERED: LORazepam 2 MG/ML VIAL IVP ONE (15:15)
[2018-12-16 15:23] LABS: BACTERIA,URINE Many /HPF (None Seen); WBC,URINE >100 /HPF (0-5)
[2018-12-16 15:25] LABS: SQUAMOUS EPITHELIAL CELL,UR Rare /LPF (None Seen)
[2018-12-16] MEDS ORDERED: CefTRIAXone 1 GM/DEXTROSE 50 ML IV ONE (18:00)
[2018-12-16 20:47] VITALS: BP 163/92
[2018-12-16] MEDS: DOCUSATE SODIUM 100 MG CAPSULE PO SCH (21:00)
[2018-12-16] MEDS: HEPARIN SODIUM,PORCINE 5,000 UNITS/ML VIAL SQ SCH (22:00)
[2018-12-16 23:45] VITALS: BP 139/80
[2018-12-17 04:24] VITALS: BP 132/66
[2018-12-17 08:01] VITALS: BP 139/92
[2018-12-17] MEDS: DOCUSATE SODIUM 100 MG CAPSULE PO SCH ×2 (09:00→21:52)
[2018-12-17] MEDS: ASPIRIN 81 MG CHEWABLE TABLET PO SCH (09:00)
[2018-12-17] MEDS: PANTOPRAZOLE SODIUM 40 MG/VIAL IVP SCH (09:31)
[2018-12-17] MEDS: HEPARIN SODIUM,PORCINE 5,000 UNITS/ML VIAL SQ SCH ×2 (09:32→21:52)
[2018-12-17 11:10] VITALS: BP 137/88
[2018-12-17 15:59] VITALS: BP 138/66
[2018-12-17] MEDS ORDERED: CefTRIAXone 1 GM/DEXTROSE 50 ML IV SCH (18:00)
[2018-12-17] MEDS ORDERED: SODIUM CHLORIDE 0.9% 100 ML ONE (18:45)
[2018-12-17 19:36] VITALS: BP 120/61
[2018-12-18 00:35] VITALS: BP 135/67
[2018-12-18 04:56] VITALS: BP 143/62
[2018-12-18 08:01] VITALS: BP 161/77
[2018-12-18] MEDS: ASPIRIN 81 MG CHEWABLE TABLET PO SCH (09:19)
[2018-12-18] MEDS: DOCUSATE SODIUM 100 MG CAPSULE PO SCH (09:19)
[2018-12-18] MEDS: PANTOPRAZOLE SODIUM 40 MG/VIAL IVP SCH (09:19)
[2018-12-18] MEDS: HEPARIN SODIUM,PORCINE 5,000 UNITS/ML VIAL SQ SCH (09:19)
[2018-12-18] MEDS ORDERED: CIPROFLOXACIN HCL 250 MG TABLET PO SCH (10:15)
[2018-12-18 11:17] VITALS: BP 126/56
== END 2018-12-18 15:10 | disposition home or self-care (01) | DRG 463 ==
LOC: EMS 11:58 → 5S 19:00 → EMS 20:21
PROVIDERS: ADMIT Internal Medicine; ATTEND Internal Medicine
DX: N39.0 Urinary tract infection, site not specified (principal); G92 Toxic encephalopathy; E43 Unspecified severe protein-calorie malnutrition; G91.9 Hydrocephalus, unspecified; F03.90 Unspecified dementia, unspecified severity, without behavioral disturbance, psychotic disturbance, mood disturbance, and anxiety; R62.7 Adult failure to thrive; I10 Essential (primary) hypertension; J32.4 Chronic pansinusitis; B96.1 Klebsiella pneumoniae [K. pneumoniae] as the cause of diseases classified elsewhere; Z82.49 Family history of ischemic heart disease and other diseases of the circulatory system; Z68.21 Body mass index [BMI] 21.0-21.9, adult; Z98.2 Presence of cerebrospinal fluid drainage device
CPT/HCPCS: 70450; 87086; 92526; 92610; 93005; 96361; 96365; 96375; 97116; 97162; 97530; C9113; G0378; J0696; J1644; J2060; J7050

== ENCOUNTER 2019-04-30 12:48 | Inpatient (IN) | payer MEDICARE, MEDICAID ==
[~2019-04-30] VITALS: Ht 172.7 cm; Wt 67.9 kg
[~2019-04-30 12:48] MED LIST changes: +AMLO5TAB9 PO; +CHOL50004 PO; -[UNRECOGNIZED DRUG - OTHER] PO
[2019-04-30] MEDS ORDERED: LevETIRAcetam 1,000 MG in DEXTROSE 5%-WATER 100 ML IV ONE (13:00)
[2019-04-30] MEDS ORDERED: LORazepam 2 MG/ML VIAL IVP ONE (14:00)
[2019-04-30 14:18] LABS: ANION GAP 11 mmol/L (8-16); CALCIUM, TOTAL 9.3 mg/dL (8.8-10.5); CARBON DIOXIDE 27 mmol/L (22-29); CHLORIDE 103 mmol/L (98-107); GLOMERULAR FILTR. RATE CALC > 60 mL/min (>60); GLUCOSE,RANDOM 109 mg/dL (70-110); POTASSIUM 4.1 mmol/L (3.5-5.1); SODIUM SERUM 141 mmol/L (136-145); UREA NITROGEN, BLOOD 16 mg/dL (7-18)
[2019-04-30 14:24] LABS: ALANINE AMINOTRANSFERASE 13 U/L (12-78); ALBUMIN 3.8 g/dL (3.4-5.0); ALKALINE PHOSPHATASE 62 U/L (46-116); ASPARTATE AMINOTRANSFERASE 18 U/L (15-37); BILIRUBIN,TOTAL 0.4 mg/dL (0.1-1.0); LIPASE 72 U/L (73-393); TOTAL PROTEIN, SERUM 7.3 g/dL (6.4-8.2)
[2019-04-30 14:25] LABS: AMMONIA 20 umol/L (11-32)
[2019-04-30 14:27] LABS: TROPONIN I < 0.02 ng/mL (0.00-0.05)
[2019-04-30 14:28] LABS: B-TYPE NATRIURETIC PEPTIDE 16 pg/mL (0-100)
[2019-04-30 14:33] LABS: PROTHROMBIN TIME 10.5 SEC (9.4-11.6)
[2019-04-30 14:43] LABS: BASOPHILS % (AUTO) 0.2 % (0.0-2.0); EOSINOPHILS % (AUTO) 2.5 % (1.0-6.0); HEMOGLOBIN 12.3 g/dL (13.5-17.5); LYMPHOCYTES # (AUTO) 0.9 K/uL (1.0-4.8); LYMPHOCYTES % (AUTO) 10.2 % (22.0-44.0); MEAN CORPUSCULAR HEMOGLOBIN 23.4 pg (26.0-34.0); MEAN CORPUSCULAR HGB CONC 30.7 G/dL (31.0-37.0); MEAN CORPUSCULAR VOLUME 76 fL (80-100); MONOCYTES # (AUTO) 0.5 K/uL (0.1-1.0); MONOCYTES % (AUTO) 5.5 % (2.0-9.0); NEUTROPHILS # (AUTO) 6.8 K/uL (1.8-7.7); NEUTROPHILS % (AUTO) 81.6 % (40.0-70.0); PLATELET COUNT (AUTO) 206 K/uL (150-450); RED BLOOD CELL COUNT(AUTO) 5.26 MIL/uL (4.50-5.90); RED CELL DISTRIBUTION WIDTH 15.4 % (11.5-14.5)
[2019-04-30 14:44] LABS: LACTIC ACID 3.2 mmol/L (0.4-2.0)
[2019-04-30 15:50] LABS: APPEARANCE,URINE CLEAR (CLEAR); BILIRUBIN,URINE NEGATIVE (NEGATIVE); GLUCOSE, URINE (UA) NEGATIVE (NEGATIVE); KETONES,URINE NEGATIVE (NEGATIVE); LEUKOCYTE ESTERASE ,URINE NEGATIVE (NEGATIVE); NITRATE,URINE NEGATIVE (NEGATIVE); OCCULT BLOOD,URINE SMALL (NEGATIVE); PH,URINE 6.5 (5.0-8.0); PROTEIN,URINE NEGATIVE (NEGATIVE); UROBILINOGEN,URINE 0.2 mg/dL (<=1.0)
[2019-04-30] MEDS ORDERED: SODIUM CHLORIDE 0.9% 2,000 ML IV ONE (15:52)
[2019-04-30 16:11] LABS: BACTERIA,URINE None Seen /HPF (None Seen); WBC,URINE 0-2 /HPF (0-5)
[2019-04-30 16:12] LABS: SQUAMOUS EPITHELIAL CELL,UR Rare /LPF (None Seen)
[2019-04-30] MEDS ORDERED: PIPERACILLIN/TAZO 3.375 GM/D5W 50 ML IV ONE (16:30)
[2019-04-30] MEDS ORDERED: ACETAMINOPHEN 325 MG TABLET PO PRN (16:45)
[2019-04-30] MEDS ORDERED: MAGNESIUM HYDROXIDE SUSPENSION 30 ML UDCUP PO PRN (16:45)
[2019-04-30] MEDS ORDERED: SODIUM CHLORIDE 0.9% 1,000 ML IV SCH (16:45)
[2019-04-30] MEDS: DOCUSATE SODIUM 100 MG CAPSULE PO SCH (21:00)
[2019-04-30 21:16] VITALS: BP 152/95
[2019-04-30] MEDS: HEPARIN SODIUM,PORCINE 5,000 UNITS/ML VIAL SQ SCH (23:54)
[2019-04-30] MEDS: DEXTROSE 5%-0.45% SODIUM CHL 1,000 ML IV SCH (23:54)
[2019-05-01 00:01] VITALS: BP 154/78
[2019-05-01 06:19] VITALS: BP 148/85
[2019-05-01] MEDS: HEPARIN SODIUM,PORCINE 5,000 UNITS/ML VIAL SQ SCH ×2 (08:38→15:25)
[2019-05-01] MEDS: DOCUSATE SODIUM 100 MG CAPSULE PO SCH ×2 (09:00→21:00)
[2019-05-01] MEDS: DEXTROSE 5%-0.45% SODIUM CHL 1,000 ML IV SCH ×2 (09:35→19:45)
[2019-05-01 11:08] VITALS: BP 152/96
[2019-05-01 16:21] VITALS: BP 144/64
[2019-05-01 19:35] VITALS: BP 147/71
[2019-05-01] MEDS ORDERED: LORazepam 2 MG/ML VIAL IVP ONE (20:30)
[2019-05-02 04:52] VITALS: BP 163/88
[2019-05-02 07:36] VITALS: BP 133/86
[2019-05-02] MEDS: HEPARIN SODIUM,PORCINE 5,000 UNITS/ML VIAL SQ SCH ×3 (08:37→16:39)
[2019-05-02] MEDS: DOCUSATE SODIUM 100 MG CAPSULE PO SCH (08:37)
[2019-05-02 11:38] VITALS: BP 144/84
[2019-05-02 15:20] VITALS: BP 149/76
[2019-05-02] MEDS: DEXTROSE 5%-0.45% SODIUM CHL 1,000 ML IV SCH (15:21)
[2019-05-02 20:34] VITALS: BP 130/69
[2019-05-03 00:25] VITALS: BP 159/81
[2019-05-03] MEDS: HEPARIN SODIUM,PORCINE 5,000 UNITS/ML VIAL SQ SCH ×2 (01:14→08:33)
[2019-05-03 05:45] VITALS: BP 161/97
[2019-05-03 07:56] VITALS: BP 157/87
[2019-05-03 07:56] LABS: BASOPHILS % (AUTO) 1.1 % (0.0-2.0); EOSINOPHILS % (AUTO) 3.3 % (1.0-6.0); HEMATOCRIT 39.5 % (41-53); HEMOGLOBIN 12.3 g/dL (13.5-17.5); LYMPHOCYTES # (AUTO) 1.4 K/uL (1.0-4.8); LYMPHOCYTES % (AUTO) 21.6 % (22.0-44.0); MEAN CORPUSCULAR HEMOGLOBIN 23.5 pg (26.0-34.0); MEAN CORPUSCULAR VOLUME 76 fL (80-100); MONOCYTES # (AUTO) 0.6 K/uL (0.1-1.0); MONOCYTES % (AUTO) 8.9 % (2.0-9.0); NEUTROPHILS # (AUTO) 4.2 K/uL (1.8-7.7); NEUTROPHILS % (AUTO) 65.1 % (40.0-70.0); PLATELET COUNT (AUTO) 207 K/uL (150-450); RED BLOOD CELL COUNT(AUTO) 5.22 MIL/uL (4.50-5.90); RED CELL DISTRIBUTION WIDTH 15.6 % (11.5-14.5)
[2019-05-03 08:03] LABS: ALANINE AMINOTRANSFERASE 9 U/L (12-78); ALBUMIN 3.7 g/dL (3.4-5.0); ALKALINE PHOSPHATASE 56 U/L (46-116); ANION GAP 9 mmol/L (8-16); ASPARTATE AMINOTRANSFERASE 18 U/L (15-37); BILIRUBIN,TOTAL 0.4 mg/dL (0.1-1.0); CALCIUM, TOTAL 9.1 mg/dL (8.8-10.5); CARBON DIOXIDE 26 mmol/L (22-29); CHLORIDE 104 mmol/L (98-107); CREATININE 1.02 mg/dL (0.60-1.30); GLOMERULAR FILTR. RATE CALC > 60 mL/min (>60); GLUCOSE,RANDOM 103 mg/dL (70-110); POTASSIUM 3.9 mmol/L (3.5-5.1); SODIUM SERUM 139 mmol/L (136-145); TOTAL PROTEIN, SERUM 7.4 g/dL (6.4-8.2); UREA NITROGEN, BLOOD 12 mg/dL (7-18)
[2019-05-03] MEDS: DOCUSATE SODIUM 100 MG CAPSULE PO SCH ×2 (08:33→08:37)
[2019-05-03 12:19] VITALS: BP_SYST 123; BP_SYST 141; BP_DIAS 71; BP_DIAS 96
== END 2019-05-03 14:47 | disposition home or self-care (01) | DRG 69 ==
LOC: EMS 12:51 → 4E 18:43
PROVIDERS: ADMIT Internal Medicine; ATTEND Internal Medicine
DX: G45.9 Transient cerebral ischemic attack, unspecified (principal); G93.41 Metabolic encephalopathy; E43 Unspecified severe protein-calorie malnutrition; G91.2 (Idiopathic) normal pressure hydrocephalus; F01.50 Vascular dementia, unspecified severity, without behavioral disturbance, psychotic disturbance, mood disturbance, and anxiety; R62.7 Adult failure to thrive; I10 Essential (primary) hypertension; Z82.49 Family history of ischemic heart disease and other diseases of the circulatory system; Z98.2 Presence of cerebrospinal fluid drainage device; Z68.22 Body mass index [BMI] 22.0-22.9, adult
CPT/HCPCS: 51702; 70450; 83605; 87040; 92610; 93005; 96365; 96367; 96375; 97162; 97530; G0378; J0712; J1644; J2060; J2543; J7030; J7060

== ENCOUNTER 2019-09-18 15:02 | Inpatient (IN) | payer MEDICARE, OTHER ==
[~2019-09-18] VITALS: Ht 175.3 cm; Wt 71.7 kg
[~2019-09-18 15:02] MED LIST changes: +CHOL125C2 PO; -CHOL50004 PO
[2019-09-18] MEDS ORDERED: LORazepam 2 MG/ML VIAL IVP ONE (16:45)
[2019-09-18] MEDS ORDERED: 0.9% SODIUM CHLORIDE 10 ML SYRINGE IVP PRN (16:45)
[2019-09-18 17:18] LABS: BASOPHILS % (AUTO) 0.7 % (0.0-2.0); EOSINOPHILS % (AUTO) 4.9 % (1.0-6.0); HEMATOCRIT 39.5 % (41-53); HEMOGLOBIN 12.6 g/dL (13.5-17.5); LYMPHOCYTES % (AUTO) 17.4 % (22.0-44.0); MEAN CORPUSCULAR HEMOGLOBIN 23.3 pg (26.0-34.0); MEAN CORPUSCULAR HGB CONC 31.8 G/dL (31.0-37.0); MEAN CORPUSCULAR VOLUME 73 fL (80-100); MONOCYTES # (AUTO) 0.5 K/uL (0.1-1.0); MONOCYTES % (AUTO) 8.4 % (2.0-9.0); NEUTROPHILS # (AUTO) 3.9 K/uL (1.8-7.7); NEUTROPHILS % (AUTO) 68.6 % (40.0-70.0); PLATELET COUNT (AUTO) 222 K/uL (150-450); RED BLOOD CELL COUNT(AUTO) 5.38 MIL/uL (4.50-5.90); RED CELL DISTRIBUTION WIDTH 15.5 % (11.5-14.5)
[2019-09-18 17:27] LABS: ANION GAP 8 mmol/L (8-16); CARBON DIOXIDE 30 mmol/L (22-29); CHLORIDE 104 mmol/L (98-107); CREATININE 0.91 mg/dL (0.60-1.30); GLOMERULAR FILTR. RATE CALC > 60 mL/min (>60); GLUCOSE,RANDOM 104 mg/dL (70-110); POTASSIUM 4.4 mmol/L (3.5-5.1); SODIUM SERUM 142 mmol/L (136-145); UREA NITROGEN, BLOOD 14 mg/dL (7-18)
[2019-09-18 17:32] LABS: INR 1.1 (0.9-1.1); PROTHROMBIN TIME 10.7 SEC (9.4-11.6)
[2019-09-18 17:35] LABS: LACTIC ACID 1.6 mmol/L (0.4-2.0)
[2019-09-18 17:52] LABS: ALANINE AMINOTRANSFERASE 26 U/L (12-78); ALBUMIN 3.7 g/dL (3.4-5.0); ALKALINE PHOSPHATASE 66 U/L (46-116); ASPARTATE AMINOTRANSFERASE 17 U/L (15-37); BILIRUBIN,TOTAL 0.2 mg/dL (0.1-1.0); CREATINE KINASE, TOTAL ONLY 205 U/L (39-308)
[2019-09-18 18:18] LABS: B-TYPE NATRIURETIC PEPTIDE 35 pg/mL (0-100)
[2019-09-18 18:47] LABS: APPEARANCE,URINE CLEAR (CLEAR); BILIRUBIN,URINE NEGATIVE (NEGATIVE); GLUCOSE, URINE (UA) NEGATIVE (NEGATIVE); KETONES,URINE NEGATIVE (NEGATIVE); LEUKOCYTE ESTERASE ,URINE NEGATIVE (NEGATIVE); NITRATE,URINE NEGATIVE (NEGATIVE); OCCULT BLOOD,URINE SMALL (NEGATIVE); PROTEIN,URINE NEGATIVE (NEGATIVE); UROBILINOGEN,URINE 0.2 mg/dL (<=1.0)
[2019-09-18 18:54] LABS: BACTERIA,URINE None Seen /HPF (None Seen); RBC,URINE 0-2 /HPF (0-2); SQUAMOUS EPITHELIAL CELL,UR Few /LPF (None Seen); WBC,URINE None Seen /HPF (0-5)
[2019-09-18] MEDS ORDERED: ACETAMINOPHEN 325 MG TABLET PO PRN (20:00)
[2019-09-18] MEDS ORDERED: BISACODYL 10 MG RECTAL RECTAL SUPPOSITORY PR PRN (20:00)
[2019-09-18] MEDS: DEXTROSE 5%-0.45% SODIUM CHL 1,000 ML IV SCH (20:29)
[2019-09-18] MEDS: HEPARIN SODIUM,PORCINE 5,000 UNITS/ML VIAL SQ SCH (23:21)
[2019-09-19 08:08] VITALS: BP 126/85
[2019-09-19] MEDS: HEPARIN SODIUM,PORCINE 5,000 UNITS/ML VIAL SQ SCH ×2 (08:56→15:39)
[2019-09-19] MEDS ORDERED: INFLUENZA VIRUS VACCINE QVS 2019-20 (3YR+)/PF 60 MCG/0.5 ML SYRINGE IM ONE (11:30)
[2019-09-19] MEDS ORDERED: PNEUMOCOCCAL VACCINE POLYVALENT 0.5 ML VIAL [PPSV23] IM ONE (11:30)
[2019-09-19 11:36] VITALS: BP 148/84
[2019-09-19 16:56] VITALS: BP 121/69
[2019-09-19 20:17] VITALS: BP 124/76
[2019-09-20 00:05] VITALS: BP 133/63
[2019-09-20] MEDS: HEPARIN SODIUM,PORCINE 5,000 UNITS/ML VIAL SQ SCH ×3 (00:36→16:00)
[2019-09-20] MEDS: DEXTROSE 5%-0.45% SODIUM CHL 1,000 ML IV SCH ×2 (00:37→16:00)
[2019-09-20 04:09] VITALS: BP 131/80
[2019-09-20 07:37] VITALS: BP 140/88
[2019-09-20 11:07] VITALS: BP 126/96
[2019-09-20 15:46] VITALS: BP 132/88
[2019-09-20] MEDS ORDERED: BACLOFEN 10 MG TABLET PO SCH (21:00)
== END 2019-09-20 18:15 | disposition home or self-care (01) | DRG 640 ==
LOC: EMS 15:04 → 5S 09-19 04:16
PROVIDERS: ADMIT Internal Medicine; ATTEND Internal Medicine
DX: R62.7 Adult failure to thrive (principal); E43 Unspecified severe protein-calorie malnutrition; G93.40 Encephalopathy, unspecified; G91.2 (Idiopathic) normal pressure hydrocephalus; Z28.21 Immunization not carried out because of patient refusal; I10 Essential (primary) hypertension; F03.90 Unspecified dementia, unspecified severity, without behavioral disturbance, psychotic disturbance, mood disturbance, and anxiety; Z68.23 Body mass index [BMI] 23.0-23.9, adult; M24.50 Contracture, unspecified joint; Z98.2 Presence of cerebrospinal fluid drainage device; Z82.49 Family history of ischemic heart disease and other diseases of the circulatory system
CPT/HCPCS: 70450; 73502; 83605; 92610; 93005; 97163; 97530; J1644; J2060

== ENCOUNTER 2019-11-10 12:54 | Inpatient (IN) | payer MEDICARE, OTHER ==
[~2019-11-10] VITALS: Ht 165.1 cm; Wt 72.1 kg
[2019-11-10] MEDS ORDERED: LevETIRAcetam 1,000 MG in DEXTROSE 5%-WATER 100 ML IV ONE (13:45)
[2019-11-10 14:43] LABS: ANION GAP 12 mmol/L (8-16); CALCIUM, TOTAL 9.3 mg/dL (8.8-10.5); CARBON DIOXIDE 25 mmol/L (22-29); CHLORIDE 103 mmol/L (98-107); GLOMERULAR FILTR. RATE CALC > 60 mL/min (>60); GLUCOSE,RANDOM 105 mg/dL (70-110); POTASSIUM 5.3 mmol/L (3.5-5.1); SODIUM SERUM 140 mmol/L (136-145); UREA NITROGEN, BLOOD 16 mg/dL (7-18)
[2019-11-10 14:55] LABS: BASOPHILS % (AUTO) 0.7 % (0.0-2.0); EOSINOPHILS % (AUTO) 3.6 % (1.0-6.0); HEMATOCRIT 43.6 % (41-53); HEMOGLOBIN 13.5 g/dL (13.5-17.5); LYMPHOCYTES # (AUTO) 1.6 K/uL (1.0-4.8); LYMPHOCYTES % (AUTO) 17.8 % (22.0-44.0); MEAN CORPUSCULAR HEMOGLOBIN 23.5 pg (26.0-34.0); MEAN CORPUSCULAR VOLUME 76 fL (80-100); MONOCYTES # (AUTO) 0.5 K/uL (0.1-1.0); MONOCYTES % (AUTO) 5.7 % (2.0-9.0); NEUTROPHILS # (AUTO) 6.7 K/uL (1.8-7.7); NEUTROPHILS % (AUTO) 72.2 % (40.0-70.0); PLATELET COUNT (AUTO) 206 K/uL (150-450); RED BLOOD CELL COUNT(AUTO) 5.75 MIL/uL (4.50-5.90); RED CELL DISTRIBUTION WIDTH 14.9 % (11.5-14.5)
[2019-11-10 15:48] LABS: PLATELET MORPHOLOGY COMMENT NORMAL
[2019-11-10] MEDS ORDERED: ONDANSETRON HCL 4 MG/2 ML VIAL IVP PRN ×2 (16:15→23:30)
[2019-11-10] MEDS ORDERED: ACETAMINOPHEN 325 MG TABLET PO PRN ×2 (16:15→23:30)
[2019-11-10 18:08] VITALS: BP 146/95
[2019-11-10 21:40] VITALS: BP 145/92
[2019-11-10] MEDS: DOCUSATE SODIUM 100 MG CAPSULE PO SCH (23:30)
[2019-11-10] MEDS ORDERED: MAGNESIUM HYDROXIDE SUSPENSION 30 ML UDCUP PO PRN (23:30)
[2019-11-10] MEDS ORDERED: BISACODYL 10 MG RECTAL RECTAL SUPPOSITORY PR PRN (23:30)
[2019-11-10] MEDS ORDERED: ALBUTEROL SULFATE 2.5 MG/0.5 ML NEB SOLUTION NEB PRN (23:30)
[2019-11-10] MEDS ORDERED: MORPHINE SULFATE 2 MG/ML SYRINGE IVP PRN (23:30)
[2019-11-10] MEDS ORDERED: IPRATROPIUM BROMIDE 0.5 MG/2.5 ML NEB SOLUTION NEB PRN (23:30)
[2019-11-10] MEDS ORDERED: ZOLPIDEM TARTRATE 5 MG TABLET PO PRN (23:30)
[2019-11-10] MEDS ORDERED: HYDROCODONE/ACETAMINOPHEN 5-325 MG TABLET PO PRN (23:30)
[2019-11-11 00:22] VITALS: BP 131/51
[2019-11-11 04:16] VITALS: BP 144/76
[2019-11-11 07:42] VITALS: BP 153/70
[2019-11-11] MEDS: HEPARIN SODIUM,PORCINE 5,000 UNITS/ML VIAL SQ SCH ×3 (08:19→16:18)
[2019-11-11] MEDS: DOCUSATE SODIUM 100 MG CAPSULE PO SCH ×2 (08:19→21:00)
[2019-11-11 11:20] VITALS: BP 128/73
[2019-11-11 15:45] VITALS: BP 113/77
[2019-11-11 19:49] VITALS: BP 130/77
[2019-11-12 00:22] VITALS: BP 136/70
[2019-11-12] MEDS: HEPARIN SODIUM,PORCINE 5,000 UNITS/ML VIAL SQ SCH ×3 (00:38→15:33)
[2019-11-12 03:45] VITALS: BP 153/87
[2019-11-12 08:06] VITALS: BP 160/88
[2019-11-12] MEDS: DOCUSATE SODIUM 100 MG CAPSULE PO SCH (08:29)
[2019-11-12 12:30] VITALS: BP 155/74
[2019-11-12 15:30] VITALS: BP 143/79
[2019-11-12] MEDS ORDERED: LevETIRAcetam 500 MG TABLET PO ONE (16:02)
[2019-11-12] MEDS ORDERED: LEVE500T8 PO (17:58)
[2019-11-12] MEDS ORDERED: LevETIRAcetam 500 MG TABLET PO SCH (21:00)
== END 2019-11-12 19:15 | disposition home or self-care (01) | DRG 101 ==
LOC: EMS 12:56 → 5S 17:18
PROVIDERS: ADMIT Hospitalist; ATTEND Hospitalist
DX: R56.9 Unspecified convulsions (principal); G91.9 Hydrocephalus, unspecified; F03.90 Unspecified dementia, unspecified severity, without behavioral disturbance, psychotic disturbance, mood disturbance, and anxiety; I10 Essential (primary) hypertension; Z82.49 Family history of ischemic heart disease and other diseases of the circulatory system; Z98.2 Presence of cerebrospinal fluid drainage device
CPT/HCPCS: 70450; 83735; 92610; 95816; 99291; J0712; J1644; J7060

== ENCOUNTER 2021-07-30 09:54 | Emergency (ER) | payer MEDICARE, OTHER ==
[~2021-07-30] VITALS: Ht 172.7 cm; Wt 60.9 kg
[~2021-07-30 09:54] MED LIST changes: -AMLO5TAB9 PO; -CHOL125C2 PO; +LEVE500T8 PO
[2021-07-30] MEDS ORDERED: IOHEXOL 350 MG/ML 150 ML VIAL ONE (10:23)
[2021-07-30] MEDS ORDERED: SODIUM CHLORIDE 0.9% 100 ML ONE (10:23)
[2021-07-30 10:51] VITALS: BP 132/93
[2021-07-30 10:58] LABS: COVID AG,FIA SOURCE NASOPHARYNGEAL
[2021-07-30 11:01] LABS: ANION GAP 9 mmol/L (8-16); CARBON DIOXIDE 26 mmol/L (22-29); CHLORIDE 107 mmol/L (98-107); CREATININE 1.03 mg/dL (0.60-1.30); GLOMERULAR FILTR. RATE CALC > 60 mL/min (>60); GLUCOSE,RANDOM 163 mg/dL (70-110); POTASSIUM 4.2 mmol/L (3.5-5.1); SODIUM SERUM 142 mmol/L (136-145); UREA NITROGEN, BLOOD 15 mg/dL (7-18)
[2021-07-30 11:06] LABS: BASOPHILS % (AUTO) 0.6 % (0.0-2.0); EOSINOPHILS % (AUTO) 3.4 % (1.0-6.0); HEMATOCRIT 45.5 % (41-53); HEMOGLOBIN 14.3 g/dL (13.5-17.5); LYMPHOCYTES # (AUTO) 1.6 K/uL (1.0-4.8); LYMPHOCYTES % (AUTO) 24.1 % (22.0-44.0); MEAN CORPUSCULAR HEMOGLOBIN 23.7 pg (26.0-34.0); MEAN CORPUSCULAR HGB CONC 31.5 G/dL (31.0-37.0); MEAN CORPUSCULAR VOLUME 75 fL (80-100); MONOCYTES # (AUTO) 0.3 K/uL (0.1-1.0); MONOCYTES % (AUTO) 4.5 % (2.0-9.0); NEUTROPHILS # (AUTO) 4.4 K/uL (1.8-7.7); NEUTROPHILS % (AUTO) 67.4 % (40.0-70.0); PLATELET COUNT (AUTO) 243 K/uL (150-450); RED BLOOD CELL COUNT(AUTO) 6.03 MIL/uL (4.50-5.90); RED CELL DISTRIBUTION WIDTH 15.6 % (11.5-14.5)
[2021-07-30 11:10] LABS: GLUCOSE,POINT OF CARE 123 MG/DL (70-110)
[2021-07-30 11:12] LABS: B-TYPE NATRIURETIC PEPTIDE 12 pg/mL (0-100)
[2021-07-30] MEDS ORDERED: LevETIRAcetam 1,000 MG in DEXTROSE 5%-WATER 100 ML IV ONE (11:30)
[2021-07-30 11:36] LABS: ALANINE AMINOTRANSFERASE 28 U/L (12-78); ALKALINE PHOSPHATASE 79 U/L (46-116); ASPARTATE AMINOTRANSFERASE 18 U/L (15-37); BILIRUBIN,TOTAL 0.4 mg/dL (0.1-1.0); CREATINE KINASE, TOTAL ONLY 192 U/L (39-308); LIPASE 32 U/L (73-393); TOTAL PROTEIN, SERUM 7.8 g/dL (6.4-8.2)
[2021-07-30 12:54] LABS: APPEARANCE,URINE CLEAR (CLEAR); BILIRUBIN,URINE NEGATIVE (NEGATIVE); GLUCOSE, URINE (UA) NEGATIVE (NEGATIVE); KETONES,URINE NEGATIVE (NEGATIVE); LEUKOCYTE ESTERASE ,URINE TRACE (NEGATIVE); NITRATE,URINE POSITIVE (NEGATIVE); OCCULT BLOOD,URINE LARGE (NEGATIVE); PROTEIN,URINE POS 1+ (NEGATIVE)
[2021-07-30 13:19] LABS: RBC,URINE 51-100 /HPF (0-2)
[2021-07-30 13:20] LABS: BACTERIA,URINE Moderate /HPF (None Seen); SQUAMOUS EPITHELIAL CELL,UR Few /LPF (None Seen)
[2021-07-30] MEDS ORDERED: CefTRIAXone 1 GM/DEXTROSE 50 ML IV ONE (13:45)
== END 2021-07-30 16:02 | disposition home or self-care (01) ==
LOC: EMS 09:54
DX: N39.0 Urinary tract infection, site not specified (principal); G96.08 Other cranial cerebrospinal fluid leak; R56.9 Unspecified convulsions; I10 Essential (primary) hypertension; F17.200 Nicotine dependence, unspecified, uncomplicated; Z20.822 Contact with and (suspected) exposure to COVID-19
CPT/HCPCS: 36415; 70450; 70496; 70498; 80053; 81001; 82550; 82962; 83690; 83735; 83880; 84484; 85025; 87077; 87086; 87186; 87426; 93005; 96365; 96367; 99285; J0696; J0712; J7050; J7060; Q9967

== ENCOUNTER 2021-10-06 12:19 | Day surgery (SDC) | payer MEDICARE, OTHER ==
[~2021-10-06] VITALS: Ht 172.7 cm; Wt 72.7 kg
[~2021-10-06 12:19] MED LIST changes: +CeFAZolin 2 GM/DEXTROSE 50 ML IV ONE; +ETHYL ALCOHOL 62% ANTISEPTIC NASAL INHALANT 0.6 ML AMPUL NASAL ONE; +LISI-892 PO; +RINGERS SOLUTION,LACTATED 1,000 ML IV ONE
[2021-10-06] MEDS ORDERED: MIDAZOLAM HCL 2 MG/2 ML VIAL IVP ONE (12:20)
[2021-10-06] MEDS ORDERED: ONDANSETRON HCL 4 MG/2 ML VIAL IVP ONE (12:20)
[2021-10-06] MEDS ORDERED: EPHEDrine SULFATE 50 MG/ML VIAL IM ONE (12:20)
[2021-10-06] MEDS ORDERED: 0.9% SODIUM CHLORIDE 10 ML VIAL IVP ONE (12:20)
[2021-10-06] MEDS ORDERED: FentaNYL CITRATE PF 100 MCG/2 ML VIAL IVP ONE (12:20)
[2021-10-06] MEDS ORDERED: LIDOCAINE/PF 2% 5 ML SYRINGE IVP ONE (12:20)
[2021-10-06] MEDS ORDERED: PROPOFOL 1% 20 ML VIAL IVP ONE (12:20)
[2021-10-06] MEDS ORDERED: ROCURONIUM BROMIDE 10 MG/ML 5 ML VIAL IVP ONE (12:20)
[2021-10-06] MEDS ORDERED: LIDOCAINE 1%/EPI 1:200,000/PF 10 ML VIAL ONE (12:39)
[2021-10-06] MEDS ORDERED: VANCOMYCIN HCL 1 GM/VIAL ONE (12:40)
[2021-10-06] MEDS ORDERED: SODIUM CHLORIDE 0.9% 500 ML IV ONE (12:41)
[2021-10-06] MEDS ORDERED: SODIUM CHLORIDE 0.9% 0 ML ONE (12:41)
[2021-10-06] MEDS ORDERED: GELATIN SPONGE,ABSORBABLE 12-7 MM TP ONE (12:45)
[2021-10-06 13:04] LABS: BASOPHILS % (AUTO) 0.8 % (0.0-2.0); EOSINOPHILS % (AUTO) 4.8 % (1.0-6.0); HEMOGLOBIN 12.8 g/dL (13.5-17.5); LYMPHOCYTES # (AUTO) 1.5 K/uL (1.0-4.8); LYMPHOCYTES % (AUTO) 21.9 % (22.0-44.0); MEAN CORPUSCULAR HEMOGLOBIN 23.7 pg (26.0-34.0); MEAN CORPUSCULAR VOLUME 74 fL (80-100); MONOCYTES # (AUTO) 0.5 K/uL (0.1-1.0); MONOCYTES % (AUTO) 7.1 % (2.0-9.0); NEUTROPHILS # (AUTO) 4.5 K/uL (1.8-7.7); NEUTROPHILS % (AUTO) 65.4 % (40.0-70.0); PLATELET COUNT (AUTO) 277 K/uL (150-450); RED BLOOD CELL COUNT(AUTO) 5.41 MIL/uL (4.50-5.90); RED CELL DISTRIBUTION WIDTH 14.9 % (11.5-14.5)
[2021-10-06 13:11] LABS: COVID AG,FIA SOURCE NASOPHARYNGEAL
[2021-10-06 13:16] LABS: ANION GAP 6 mmol/L (8-16); CALCIUM, TOTAL 9.5 mg/dL (8.8-10.5); CARBON DIOXIDE 32 mmol/L (22-29); CHLORIDE 106 mmol/L (98-107); CREATININE 0.74 mg/dL (0.60-1.30); GLOMERULAR FILTR. RATE CALC > 60 mL/min (>60); GLUCOSE,RANDOM 118 mg/dL (70-110); POTASSIUM 4.4 mmol/L (3.5-5.1); SODIUM SERUM 144 mmol/L (136-145); UREA NITROGEN, BLOOD 21 mg/dL (7-18)
[2021-10-06] MEDS ORDERED: SUGAMMADEX SODIUM 200 MG/2 ML VIAL IVP ONE ×2 (13:18→13:19)
[2021-10-06 13:31] LABS: INR 1.1 (0.9-1.1); PROTHROMBIN TIME 11.2 SEC (9.4-11.6)
[2021-10-06] MEDS ORDERED: VANCOMYCIN HCL 1 GM/VIAL IRRIG ONE (14:00)
[2021-10-06] MEDS ORDERED: BACITRACIN 28 GM OINTMENT TP ONE (14:08)
[2021-10-06] MEDS ORDERED: ACETAMINOPHEN 1000 MG/ISO-OSM 100 ML IV ONE (14:30)
[2021-10-06] MEDS ORDERED: HYDROmorphone 2 MG/ML VIAL IVP PRN (14:30)
[2021-10-06] MEDS ORDERED: ONDANSETRON HCL 4 MG/2 ML VIAL IVP PRN (14:30)
[2021-10-06] MEDS ORDERED: OXYGEN THERAPY IH SCH (20:00)
== END 2021-10-06 17:15 | disposition home or self-care (01) ==
LOC: SDS 12:19 → EDSTATUS 14:00 → SDS 17:15
PROVIDERS: ATTEND Neurological Surgery
DX: Z45.41 Encounter for adjustment and management of cerebrospinal fluid drainage device (principal); G91.0 Communicating hydrocephalus; I10 Essential (primary) hypertension; G40.909 Epilepsy, unspecified, not intractable, without status epilepticus; Z20.822 Contact with and (suspected) exposure to COVID-19; Z79.899 Other long term (current) drug therapy; Z79.01 Long term (current) use of anticoagulants
CPT/HCPCS: 36415; 62230; 71045; 80048; 85025; 85610; 85730; 87426; 88300; 93005; C1716; C9803; J0690; J2250; J2405; J2704; J3010; J3370; J3490 ×4; J7040; J7120; Q9967; J7050; Z7610

== ENCOUNTER 2021-11-11 06:44 | Emergency (ER) | payer MEDICARE, OTHER ==
[~2021-11-11] VITALS: Ht 170.2 cm; Wt 70.5 kg
[~2021-11-11 06:44] MED LIST changes: -CeFAZolin 2 GM/DEXTROSE 50 ML IV ONE; -ETHYL ALCOHOL 62% ANTISEPTIC NASAL INHALANT 0.6 ML AMPUL NASAL ONE; -RINGERS SOLUTION,LACTATED 1,000 ML IV ONE
[2021-11-11] MEDS ORDERED: PB/HYOSCY/ATR/SCOP/LIDO/MAALOX 55 ML BOTTLE PO ONE (08:00)
[2021-11-11 09:14] VITALS: BP 125/60
[2021-11-13] MEDS ORDERED: LISI40TA9 PO (18:46)
== END 2021-11-11 10:48 | disposition home or self-care (01) ==
LOC: EMS 06:48
DX: R06.6 Hiccough (principal); M25.551 Pain in right hip; I10 Essential (primary) hypertension
CPT/HCPCS: 73502; 99283

== ENCOUNTER 2023-09-15 19:04 | Emergency (ER) | payer MEDICARE, OTHER ==
[~2023-09-15] VITALS: Ht 165.1 cm; Wt 49.0 kg
[~2023-09-15 19:04] MED LIST changes: +CEPH250S56 PO; -LISI-892 PO; +LISI40TA9 PO; +POTA20LI57 GT
[2023-09-15 19:05] VITALS: TEMP 99.1
[2023-09-15 19:55] VITALS: BP 158/66; PULSE 64; RESP 16
== END 2023-09-15 22:22 | disposition home or self-care (01) ==
LOC: EMS 19:04
DX: K94.23 Gastrostomy malfunction (principal); I10 Essential (primary) hypertension; Z98.890 Other specified postprocedural states
CPT/HCPCS: 99282; 99284; Z7502

== ENCOUNTER 2024-11-25 13:04 | Emergency (ER) | payer MEDICARE, OTHER ==
[~2024-11-25] VITALS: Ht 172.7 cm; Wt 63.6 kg
[2024-11-25 13:11] VITALS: BP 167/98; PULSE 56; RESP 16; TEMP 97.7; O2SAT 97
== END 2024-11-25 16:55 | disposition left against medical advice (07) ==
LOC: EMS 13:04
DX: Z43.1 Encounter for attention to gastrostomy (principal); Z53.21 Procedure and treatment not carried out due to patient leaving prior to being seen by health care provider